=== PATIENT | female | born 1970 | race Caucasian/White ===

== ENCOUNTER 2017-05-11 17:28 | Emergency (ER) | payer MEDICAID ==
[~2017-05-11] VITALS: Ht 149.9 cm; Wt 66.6 kg
[~2017-05-11 17:28] MED LIST: CLIN-80 PO
[2017-05-11 18:14] VITALS: BP 152/91
== END 2017-05-11 18:44 | disposition home or self-care (01) ==
LOC: ER 17:28
DX: B34.9 Viral infection, unspecified (principal); J45.909 Unspecified asthma, uncomplicated
CPT/HCPCS: 87081; 87880; 99284

== ENCOUNTER 2019-09-07 21:29 | Emergency (ER) | payer MEDICAID ==
[~2019-09-07] VITALS: Ht 149.9 cm; Wt 62.3 kg
[~2019-09-07 21:29] MED LIST changes: -CLIN-80 PO; +CLIN-97 PO
[2019-09-07] MEDS ORDERED: amoxicillin 250mg capsule PO ONE (22:15)
[2019-09-07] MEDS ORDERED: AMOX500C2 PO (22:17)
[2019-09-07 22:27] VITALS: BP 160/105
== END 2019-09-07 22:33 | disposition home or self-care (01) ==
LOC: ER 21:30
DX: R59.1 Generalized enlarged lymph nodes (principal); J45.909 Unspecified asthma, uncomplicated; F41.9 Anxiety disorder, unspecified; F17.200 Nicotine dependence, unspecified, uncomplicated; Z85.9 Personal history of malignant neoplasm, unspecified; Z72.89 Other problems related to lifestyle; Z79.2 Long term (current) use of antibiotics
CPT/HCPCS: 99283

== ENCOUNTER 2020-09-06 11:00 | Emergency (ER) | payer MEDICAID ==
[~2020-09-06] VITALS: Ht 149.9 cm; Wt 59.1 kg
[2020-09-06] MEDS ORDERED: cloNIDine 0.1 mg tablet PO STA (11:43)
[2020-09-06 12:17] LABS: BASOPHILS # (AUTO) 0.1 X10'3 (0-0.2); BASOPHILS % (AUTO) 0.7 % (0-1); EOSINOPHILS # (AUTO) 0.1 X10'3 (0-0.9); EOSINOPHILS % (AUTO) 0.9 % (0-6); HEMATOCRIT 38.4 % (35.0-45.0); HEMOGLOBIN 12.6 g/dl (12.0-16.0); LYMPHOCYTES # (AUTO) 2.4 X10'3 (1.1-4.8); LYMPHOCYTES % (AUTO) 25.6 % (21-51); MEAN CORPUSCULAR HGB CONC 32.8 g/dL (33.0-36.5); MEAN CORPUSCULAR VOLUME 91.3 FL (78-98); MEAN PLATELET VOLUME 8.4 FL (7.4-10.4); MONOCYTES # (AUTO) 0.6 X10'3 (0-0.9); MONOCYTES % (AUTO) 6.6 % (2-12); NEUTROPHILS # (AUTO) 6.1 X10'3 (1.8-7.7); NEUTROPHILS % (AUTO) 66.2 % (42-75); PLATELET COUNT 341 X10'3 (140-440); RED BLOOD COUNT 4.21 X10'6 (4.20-5.60); RED CELL DISTRIBUTION WIDTH 16.2 % (11.5-14.5); WHITE BLOOD COUNT 9.2 X10'3 (4.5-11.0)
[2020-09-06 12:31] LABS: ALANINE AMINOTRANSFERASE 18 U/L (12-78); ALBUMIN 3.3 G/DL (3.4-5.0); ALBUMIN/GLOBULIN RATIO 0.9 (1.1-1.5); ALKALINE PHOSPHATASE 79 IU/L (46-116); ANION GAP 8 (8-16); ASPARTATE AMINO TRANSFERASE 17 U/L (10-37); BILIRUBIN,TOTAL 0.4 MG/DL (0.1-1.0); BLOOD UREA NITROGEN 13 MG/DL (7-18); BUN/CREATININE RATIO 18.8 (6.6-38.0); CALCIUM 8.5 MG/DL (8.5-10.1); CHLORIDE 107 MMOL/L (99-107); CREATININE 0.69 MG/DL (0.40-0.90); GLUCOSE 98 MG/DL (70-104); POTASSIUM 3.9 MMOL/L (3.5-5.1); SODIUM 142 MMOL/L (135-145); TOTAL CARBON DIOXIDE 27.5 MMOL/L (24-32); eGFR > 90 ML/MIN
[2020-09-06 12:51] LABS: CLARITY,URINE CLEAR (Clear); COLOR,URINE STRAW (Yellow); GLUCOSE, URINE NEGATIVE (Neg); KETONES,URINE NEGATIVE (Neg); LEUKOCYTE ESTERASE ,URINE NEGATIVE (Neg); NITRITES, URINE NEGATIVE (Neg); OCCULT BLOOD,URINE NEGATIVE (Neg); PROTEIN,URINE NEGATIVE (Neg); UROBILINOGEN,URINE 0.2 E.U/dL (0.2-1.0)
[2020-09-06 13:05] LABS: UA COLLECTION TYPE NON-SPECIFIED
[2020-09-06] MEDS ORDERED: meclizine 12.5mg tablet PO ONE (13:05)
--- NOTE | 2020-09-06 13:37 | NUR ---
First interaction with pt, report received from GILBERTO Quintana. Pt with family in room, complains of dizziness. Pt denies pain, but discomfort R ear as pressure. Medication given and will continue monitoring closely. On radiation monitor. BP decrease since arrival see vss. Water provided to pt.
[2020-09-06] MEDS ORDERED: CLON0.2T PO (14:21)
[2020-09-06] MEDS ORDERED: AMOX500C2 PO (14:21)
[2020-09-06] MEDS ORDERED: MECL-159 PO (14:21)
--- NOTE | 2020-09-06 14:33 | NUR ---
Pt report feling better and no vertigo. feels confident to go home with . Education given and vss. denies pain at this time.
[2020-09-06 14:35] VITALS: BP 128/75
== END 2020-09-06 14:25 | disposition home or self-care (01) ==
LOC: ER 11:00
DX: R07.89 Other chest pain (principal); R42 Dizziness and giddiness; H66.91 Otitis media, unspecified, right ear; J45.909 Unspecified asthma, uncomplicated; F41.9 Anxiety disorder, unspecified; Z85.9 Personal history of malignant neoplasm, unspecified; Z72.89 Other problems related to lifestyle; Z79.2 Long term (current) use of antibiotics
CPT/HCPCS: 36415; 71045; 80053; 81003; 84484; 85025; 93005; 99285; J8597

== ENCOUNTER 2020-10-24 15:07 | Emergency (ER) | payer MEDICAID ==
[~2020-10-24] VITALS: Ht 149.9 cm; Wt 56.8 kg
[~2020-10-24 15:07] MED LIST changes: +CLON0.2T PO; +MECL-159 PO
[2020-10-24 15:17] VITALS: BP 134/82
[2020-10-24] MEDS ORDERED: dexamethasone sod phosphate 10mg/ml inj PO STA (16:35)
[2020-10-24] MEDS ORDERED: famotidine 20mg tablet PO ONE (16:35)
[2020-10-24] MEDS ORDERED: diphenhydrAMINE 25mg capsule PO ONE (16:35)
== END 2020-10-24 17:58 | disposition home or self-care (01) ==
LOC: ER 15:08
DX: R20.2 Paresthesia of skin (principal); I10 Essential (primary) hypertension; J45.909 Unspecified asthma, uncomplicated; F41.9 Anxiety disorder, unspecified; Z85.9 Personal history of malignant neoplasm, unspecified; Z72.89 Other problems related to lifestyle; Z79.2 Long term (current) use of antibiotics; Z79.899 Other long term (current) drug therapy
CPT/HCPCS: 93005; 99284; J1100; Q0163

== ENCOUNTER 2023-08-23 21:14 | Emergency (ER) | payer MEDICAID ==
[~2023-08-23] VITALS: Ht 177.8 cm; Wt 65.5 kg
[~2023-08-23 21:14] MED LIST changes: -MECL-159 PO; +MECL-302 PO
[2023-08-23 21:25] VITALS: BP 195/84; PULSE 75; RESP 16; TEMP 98.3; O2SAT 99
[2023-08-23 21:34] LABS: BASOPHILS # (AUTO) 0.1 X10'3 (0-0.2); BASOPHILS % (AUTO) 0.7 % (0-1); EOSINOPHILS # (AUTO) 0.1 X10'3 (0-0.9); EOSINOPHILS % (AUTO) 1.2 % (0-6); HEMATOCRIT 38.3 % (35.0-45.0); HEMOGLOBIN 12.8 g/dl (12.0-16.0); LYMPHOCYTES # (AUTO) 3.5 X10'3 (1.1-4.8); LYMPHOCYTES % (AUTO) 41.3 % (21-51); MEAN CORPUSCULAR HEMOGLOBIN 30.6 PG (27.0-31.0); MEAN CORPUSCULAR HGB CONC 33.4 g/dL (33.0-36.5); MEAN CORPUSCULAR VOLUME 91.7 FL (78-98); MONOCYTES # (AUTO) 0.6 X10'3 (0-0.9); MONOCYTES % (AUTO) 6.6 % (2-12); NEUTROPHILS # (AUTO) 4.2 X10'3 (1.8-7.7); NEUTROPHILS % (AUTO) 50.2 % (42-75); PLATELET COUNT 324 X10'3 (140-440); RED BLOOD COUNT 4.17 X10'6 (4.20-5.60); WHITE BLOOD COUNT 8.5 X10'3 (4.5-11.0)
[2023-08-23 21:57] LABS: ALBUMIN 3.5 G/DL (3.4-5.0); ANION GAP 12 (8-16); BLOOD UREA NITROGEN 19 MG/DL (7-18); BUN/CREATININE RATIO 23.2 (10.0-20.0); CHLORIDE 108 MMOL/L (99-107); CREATININE 0.82 MG/DL (0.40-0.90); GLUCOSE 119 MG/DL (70-104); POTASSIUM 3.8 MMOL/L (3.5-5.1); PRO BRAIN NATRIURETIC PEPTIDE 121 PG/ML (0-125); SODIUM 147 MMOL/L (135-145); TOTAL CARBON DIOXIDE 27.3 MMOL/L (24-32); eCRCL 84 ML/MIN; eGFR 73 ML/MIN
[2023-08-23 23:09] LABS: ALANINE AMINOTRANSFERASE 31 U/L (12-78); ALBUMIN/GLOBULIN RATIO 0.9 (1.1-1.5); ALKALINE PHOSPHATASE 99 IU/L (46-116); ASPARTATE AMINO TRANSFERASE 13 U/L (10-37); BILIRUBIN,TOTAL 0.2 MG/DL (0.1-1.0); TOTAL PROTEIN 7.3 G/DL (6.4-8.2)
[2023-08-23 23:21] LABS: BILIRUBIN,DIRECT 0.1 MG/DL (0-0.3)
[2023-08-23] MEDS: mag hydrox/Alum hydrox/simeth 30ml oral suspension PO ONE (23:32)
[2023-08-23] MEDS: LIDOcaine 2% Viscous 15ml cup MM ONE (23:32)
[2023-08-24] MEDS: LORazepam 2 mg/ml vial IM ONE ×3 (00:36)
[2023-08-24] MEDS: famotidine 20mg tablet PO ONE (01:04)
== END 2023-08-24 02:48 | disposition home or self-care (01) ==
LOC: ER 21:14
DX: R10.13 Epigastric pain (principal); I10 Essential (primary) hypertension; J45.909 Unspecified asthma, uncomplicated; Z79.2 Long term (current) use of antibiotics; Z79.899 Other long term (current) drug therapy
CPT/HCPCS: 36415; 71045; 76700; 80048; 80076; 83880; 84484; 85025; 93005; 99285

== ENCOUNTER → 2024-01-26 | Emergency (ER) | payer MEDICAID ==
[~2024-01-26] VITALS: Ht 149.9 cm; Wt 62.7 kg
[2024-01-26] MEDS: LORazepam 1 MG tablet PO ONE (10:20)
[2024-01-26 10:46] LABS: ALBUMIN 3.8 G/DL (3.4-5.0); ANION GAP 9 (8-16); BLOOD UREA NITROGEN 9 MG/DL (7-18); CALCIUM 9.1 MG/DL (8.5-10.1); CHLORIDE 110 MMOL/L (99-107); CREATININE 0.75 MG/DL (0.40-0.90); GLUCOSE 89 MG/DL (70-104); POTASSIUM 3.7 MMOL/L (3.5-5.1); SODIUM 144 MMOL/L (135-145); TOTAL CARBON DIOXIDE 25.5 MMOL/L (24-32); eCRCL 60 ML/MIN; eGFR 81 ML/MIN
[2024-01-26 12:30] VITALS: BP 162/79; PULSE 74; RESP 18; TEMP 98; O2SAT 99
== END | disposition home or self-care (01) ==
LOC: ER 09:37
DX: I10 Essential (primary) hypertension (principal); J45.909 Unspecified asthma, uncomplicated; F41.9 Anxiety disorder, unspecified; Z85.89 Personal history of malignant neoplasm of other organs and systems; Z79.2 Long term (current) use of antibiotics; Z72.89 Other problems related to lifestyle
CPT/HCPCS: 36415; 80048; 93005; 99284

== ENCOUNTER 2024-07-28 14:10 | Outpatient (CLI) | payer MEDICAID ==
[~2024-07-28] VITALS: Ht 149.9 cm; Wt 61.2 kg
[2024-07-28] MEDS: albuterol 2.5 MG/3 ML nebule NEB ONE (14:47)
[2024-07-28 14:48] VITALS: PULSE 88; RESP 16; O2SAT 96
[2024-07-28 15:01] VITALS: PULSE 76; RESP 16
[2024-08-07] MEDS ORDERED: AZIT-164 PO (22:29)
== END 2024-07-28 23:59 | disposition home or self-care (01) ==
LOC: RT 14:10
PROVIDERS: ATTEND Nurse Practitioner Family
DX: J45.998 Other asthma (principal); R06.02 Shortness of breath
CPT/HCPCS: 94060; 94760